=== PATIENT | male | born 1945 | race Caucasian/White ===

== ENCOUNTER → 2016-09-27 | Outpatient (CLI) | payer OTHER ==
--- NOTE | ~2016-09-27 | 2DMMODE ---
[facility] [address] [place] [address] 2 D/M-MODE ECHOCARDIOGRAM Name: MATTHEW WESTON Room #: REG CL [facility]#: [id number] Admission: 09/27/16 Attend Phys: Charanjit Cain Discharge: Date of : 43 Date of Service: 09/27/16 1459 Report #: [id number] THIS REPORT FOR: //name// APPROVED REPORT Study performed: 09/27/2016 14:09:36 EXAM: Comprehensive 2D, Doppler, and color-flow Echocardiogram Patient Location: Out-Patient Status: routine BSA: 2.07 HR: 56 bpm BP: 137/73 mmHg Rhythm: NSR Other Information Study Quality: Adequate Indications Bradycardia 2D Dimensions RVDd: 38.33 mm LVEF(%): 62.42 (>50%) IVSd: 11.04 (7-11mm) LVOT Diam: 21.59 (18-24mm) LVDd: 40.57 mm PWd: 10.16 (7-11mm) Ascending Ao: 30.74 (22-36mm) LVDs: 27.08 (25-40mm) Aortic Root: 32.59 mm Garcia's LVEF: 62.42 % Volumes Left Atrial Volume (Systole) Single Plane 4CH: 47.14 mL Single Plane 2CH: 55.21 mL LA ESV Index: 28.00 mL/m2 Aortic Valve AoV Peak Roland.: 2.63 m/s AO Peak Gr.: 27.76 mmHg LVOT Max P.21 mmHg AO Mean Gr.: 13.77 mmHg AO V2 Mean: 1.76 m/s LVOT Max V: 1.34 m/s AO V2 VTI: 54.31 cm MARCO Vmax: 1.87 cm2 Mitral Valve [facility] [place] [address] 2 D/M-MODE ECHOCARDIOGRAM Name: MATTHEW WESTON [id number] Admission: 09/27/16 Attend Phys: Charanjit Cain Discharge: Date of : 43 Date of Service: 09/27/16 1459 Report #: [id number] E/A Ratio: 0.9 MV Decel. Time: 231.03 ms MV E Max Roland.: 0.77 m/s MV A Roland.: 0.86 m/s MV PHT: 67.00 ms IVRT: 92.27 ms Pulmonary Valve PV Peak Roland.: 1.71 m/s PV Peak Gr.: 11.71 mmHg Pulmonary Vein P Vein S: 0.44 m/s P Vein A: 0.28 m/s P Vein D: 0.30 m/s P Vein A Dur.: 96.9 msec P Vein S/D Ratio: 1.47 Tricuspid Valve TR Peak Roland.: 2.35 m/s RAP Estimate: 5.00 mmHg TR Peak Gr.: 22.13 mmHg PA Pressure: 27.00 mmHg Left Ventricle The left ventricle is normal size. There is normal LV segmental wall motion. There is normal left ventricular wall thickness. Left ventricular systolic function is normal. LVEF is 55-60%. Mild diastolic dysfunction is present (impaired relaxation pattern). Right Ventricle The right ventricle is normal size. The right ventricular systolic function is normal. Atria The left atrium size is normal. The right atrium size is normal. Aortic Valve Aortic valve is calcified. No aortic regurgitation is present. There is very mild valvular aortic stenosis. Calculated aortic valve area is 1.9 cm2 with maximum pressure gradient of 28 mmHg and mean pressure gradient of 14 mmHg. Mitral Valve The mitral valve is normal in structure. Trace mitral regurgitation. Tricuspid Valve [facility] [address] [place] [address] 2 D/M-MODE ECHOCARDIOGRAM Name: MATTHEW WESTON Room #: REG CL [facility]#: [id number] Admission: 09/27/16 Attend Phys: Charanjit Cain Discharge: Date of : 43 Date of Service: 09/27/16 1459 Report #: [id number] The tricuspid valve is normal in structure. There is trace tricuspid regurgitation. The right atrial pressure is estimated at 5 mmHg. Estimated PAP of 27mmHg. Pulmonic Valve The pulmonary valve is normal in structure. Trace pulmonic regurgitation. Great Vessels The aortic root is normal in size. The ascending aorta is normal in size. IVC is normal in size and collapses >50% with inspiration. Pericardium There is no pericardial effusion. <Conclusion> The left ventricle is normal size. LVEF is 55-60%. Aortic valve is calcified. No aortic regurgitation is present. There is very mild valvular aortic stenosis. Calculated aortic valve area is 1.9 cm2 with maximum pressure gradient of 28 mmHg and mean pressure gradient of 14 mmHg. The mitral valve is normal in structure. Trace mitral regurgitation. The tricuspid valve is normal in structure. There is trace tricuspid regurgitation. The right atrial pressure is estimated at 5 mmHg. Estimated PAP of 27mmHg. The pulmonary valve is normal in structure. Trace pulmonic regurgitation. <ELECTRONICALLY SIGNED> By: Axel Street MD 09/27/16 [address] MD /INF
== END ==
LOC: CV 13:17
DX: I35.0 Nonrheumatic aortic (valve) stenosis (principal); R00.1 Bradycardia, unspecified

== ENCOUNTER 2016-10-27 06:31 | Observation (INO) | payer OTHER ==
[~2016-10-27] VITALS: Ht 177.8 cm; Wt 90.7 kg
--- NOTE | ~2016-10-27 | D ---
[facility] [place] [address] DISCHARGE SUMMARY Name: MATTHEW WESTON Room #: 205-P [facility] Lida Rosado#: [id number] Admission: 10/27/16 Attend Phys: Charanjit Cain MD Discharge: 10/28/16 Date of : 43 Report #: [id number] THIS REPORT FOR: //name// CC: Charanjit Persony Sidra FINAL DIAGNOSES: 1. Tachycardia-bradycardia syndrome, symptomatic, status post permanent pacemaker insertion. 2. Paroxysmal atrial fibrillation. 3. Sinus bradycardia. 4. Hypertension. 5. Hypercholesterolemia. HOSPITAL COURSE: Please see the original H and P for full details. The patient was found to have symptomatic paroxysmal atrial fibrillation as well as symptomatic bradycardia. The patient was diagnosed with tachycardia-bradycardia syndrome. He presented electively for a pacemaker insertion. This was performed by Dr. Cain. The patient remains hemodynamically stable and will be discharged home today. FINAL DISPOSITION: Amlodipine 5 mg daily, Lipitor 40 mg daily, Synthroid, losartan 50 mg daily, omeprazole 20 mg daily, Zetia 10 mg daily, Toprol-XL 25 mg daily, and Lexapro. <ELECTRONICALLY SIGNED> By: Masoud Kaur MD 10/29/16 0836 [id number] [id number] Masoud Kaur MD /nt
--- NOTE | ~2016-10-27 | P ---
[facility] [place] [address] PROCEDURE REPORT Name: TRISTAMATTHEW ORTIZ [facility] [id number] Admission: 10/27/16 Attend Phys: Charanjit Cain MD Discharge: Date of : 43 Report #: [id number] THIS REPORT FOR: //name// CC: Charanjit Valente DATE OF SERVICE: 10/27/2016 PREOPERATIVE DIAGNOSIS: Sick sinus syndrome. POSTOPERATIVE DIAGNOSIS: Sick sinus syndrome. HISTORY OF PRESENT ILLNESS: The patient is a 71-year-old with history of paroxysmal atrial fibrillation as well as symptomatic bradycardia and tachycardia-bradycardia syndrome who is here for dual chamber pacemaker implantation. ANESTHESIA: The patient underwent MAC anesthesia with no anesthesia related complications. PROCEDURE: The patient underwent informed consent. We discussed the details of the procedure including the risks, which include, but not limited to bleeding, infection, vascular damage, cardiac perforation, and pneumothorax. He understood these risks and was willing to proceed. As such, he was brought to the EP laboratory in a fasting and sedated state and prepped and draped in a sterile fashion. The patient received IV antibiotics prior to the initiation of the procedure and underwent a venogram showing patency of the left axillary vein. Next, I injected 20 mL of lidocaine below the level of left clavicle. Incision was made. A pocket was created over the prepectoral fascia and access was obtained twice to the left axillary vein using the extrathoracic approach. Sheaths were positioned using the modified Seldinger technique. Next, under fluoroscopy, leads were positioned in the right ventricular apex and right atrial appendage, both with adequate pacing and sensing thresholds and the leads were sutured to the prepectoral fascia using Ethibond suture. The device was connected and placed in the pocket. The pocket was irrigated with vancomycin and then the pocket was closed in 3 layers and surgical glue was placed to the outer skin layer. The patient awoke neurologically and hemodynamically intact with no complications and no significant bleeding. The implanted pacemaker is a [employer] model #QD4900, serial #[id number] with an atrial lead was a [employer] model #2088TC, 52-cm, serial #[id number] with a P-wave of 2.1 millivolts, pacing impedance of 440 ohms and pacing threshold 0.75 volts at 0.4 milliseconds. The RV lead was a [employer] model #2088TC, 58-cm, serial #[id number] with an R-wave greater than 12 millivolts, pacing impedance of 640 ohms and pacing threshold 0.5 volts at 0.4 milliseconds. The device was programmed to the DDDR 60-130 mode[address] [address] PROCEDURE REPORT Name: MATTHEW WESTON DIANA Room #: REG CL [facility]#: [id number] Admission: 10/27/16 Attend Phys: Charanjit Cain MD Discharge: Date of : 43 Report #: [id number] CONCLUSIONS: 1. Successful dual chamber pacemaker implantation. 2. Satisfactory atrial and ventricular pacing and sensing thresholds. By: 0934 1022 Charanjit Cain MD /nt
[2016-10-27] MEDS ORDERED: ATORVASTATIN CA40 MG PO (06:49)
[2016-10-27] MEDS ORDERED: NORVASC5 MG PO (06:49)
[2016-10-27] MEDS ORDERED: SYNTHROID100 MCG PO (06:50)
[2016-10-27] MEDS ORDERED: PRADAXA150 MG PO (06:50)
[2016-10-27] MEDS ORDERED: COZAAR 50 MG TA50 M2 PO (06:51)
[2016-10-27] MEDS ORDERED: ZETIA10 MG PO (06:51)
[2016-10-27] MEDS ORDERED: TOPROL XL25 MG PO (06:51)
[2016-10-27] MEDS ORDERED: OMEPRAZOLE 20 M20 MG PO (06:51)
[2016-10-27] MEDS ORDERED: LEXAPRO 10 MG T10 M1 PO (06:52)
[2016-10-27 07:06] VITALS: BP 140/68
[2016-10-27 07:13] LABS: ABSOLUTE NEUTROPHILS 2.3 thou/uL (1.4-8.2); BASOPHILS 1.1 % (0.0-2.0); EOSINOPHILS 13.1 % (0.0-3.0); HEMATOCRIT 41.5 % (42.0-52.0); HEMOGLOBIN 14.2 gm/dL (14.0-18.0); MCH 30.6 pg (26.0-34.0); MCHC 34.3 g/dL (28.0-37.0); MCV 89.1 fL (80.0-100.0); MONOCYTES 8.4 % (1.0-8.0); PLATELET COUNT 178 thou/uL (150-400); POLYS 44.4 % (36.0-66.0); RBC 4.65 mil/uL (4.50-6.00); RDW 14.3 % (10.5-14.5); WBC 5.3 thou/uL (4.0-11.0)
[2016-10-27 07:16] LABS: MANUAL DIFF NO
[2016-10-27 07:21] LABS: CALCIUM 9.4 mg/dL (8.5-10.1); CREATININE 1.1 mg/dL (0.7-1.3); POTASSIUM 3.7 mmol/L (3.5-5.1)
[2016-10-27 07:27] LABS: TOTAL BILIRUBIN 0.8 mg/dL (<0.1-1.0); TOTAL PROTEIN 7.2 g/dL (6.4-8.2)
[2016-10-27 07:28] LABS: APTT 28.9 Seconds (24.5-32.8); PROTIME 10.2 Seconds (9.3-11.4)
[2016-10-27 11:16] VITALS: BP 136/90
[2016-10-27 15:23] VITALS: BP 141/80
[2016-10-27 19:13] VITALS: BP 134/71
[2016-10-27 19:18] VITALS: BP 125/74
[2016-10-28 04:14] VITALS: BP 136/87
[2016-10-28 07:15] VITALS: BP 131/77
[2016-10-28 11:00] VITALS: BP 130/71
[2016-10-28 11:30] VITALS: BP 131/77
== END 2016-10-28 12:05 | disposition home or self-care (01) ==
LOC: CATH 06:31 → 2N 11:15 → CATH 11:52 → 2N 10-28 12:05
PROVIDERS: Internal Medicine Cardiovascular Disease
DX: I49.5 Sick sinus syndrome (principal); I48.0 Paroxysmal atrial fibrillation; R00.1 Bradycardia, unspecified; I10 Essential (primary) hypertension; E78.00 Pure hypercholesterolemia, unspecified
CPT/HCPCS: 62110; 62900; 70005

== ENCOUNTER → 2016-11-14 | Outpatient (CLI) | payer OTHER ==
[~2016-11-14] MED LIST: ATORVASTATIN CA40 MG PO; COZAAR 50 MG TA50 M2 PO; LEXAPRO 10 MG T10 M1 PO; NORVASC5 MG PO; OMEPRAZOLE 20 M20 MG PO; PRADAXA150 MG PO; SYNTHROID100 MCG PO; TOPROL XL25 MG PO; ZETIA10 MG PO
== END ==
LOC: NUC 08:07
DX: I48.91 Unspecified atrial fibrillation (principal)

== ENCOUNTER → 2017-08-23 | Outpatient (CLI) | payer OTHER ==
[~2017-08-23] VITALS: Ht 177.8 cm; Wt 118.4 kg
[~2017-08-23] MED LIST changes: +LEXAPRO 10 MG T10 M2 PO; +LEXAPRO20 MG PO; +OMEPRAZOLE 20 M20 M1 PO; -OMEPRAZOLE 20 M20 MG PO; +SYNTHROID100 MC1 PO; -SYNTHROID100 MCG PO; +TAMBOCOR 100 M100 M1 PO; +TRAZODONE HCL50 MG PO
--- NOTE | ~2017-08-23 | PATH ---
[facility] [address] [place] [address] PATHOLOGY RPT PROCEDURE Name: TRISTAMATTHEW ORTIZ Room #: REG [facility]#: [id number] Admission: 08/23/17 Date of : 43 Discharge: Report #: [id number] Path Case #: [id number] [facility] Accession Number: [id number] . 01 Material submitted: . GASTRITIS BIOPSY . 01 Clinical history: . Dysphagia, gastritis, hiatal hernia, Padmini's ring. . 02 Diagnosis: Gastric biopsy, "gastritis rule out H. pylori": - Mild chronic reactive gastropathy. - The immunoperoxidase stains for Helicobacter pylori is negative. (SHA:mgjayden; 08/24/17) QRQ/08/24/2017 . 02 Electronically signed: . Shar Jiménez MD, Pathologist NPI- [id number] . 01 Gross description: . Received in formalin labeled "CaitlynswathiMatthew, gastritis rule out H. pylori" is a 1.2 x 0.5 x 0.2 cm aggregate of corcoran-brown soft tissue fragments. The specimen is submitted in cassette A1. ([facility]; 08/23/2017) SYC/SYC . 02 Pathologist provided ICD-10: K31.9 . 02 CPT . 810957, A31460 Performed at: [address], [place] [id number] MD Shamar Robin MD Phone: [phone] Performed at: [address] [id number] MD Narcisa Garcia MD Phone: [phone]
--- NOTE | ~2017-08-23 | P ---
[facility] [place] [address] PROCEDURE REPORT Name: MATTHEW WESTON Room #: REG [facility]#: [id number] Admission: 08/23/17 Attend Phys: Chaim Castro MD Discharge: Date of : 43 Report #: [id number] THIS REPORT FOR: //name// CC: Chaim Isabel MD OUTPATIENT UPPER ENDOSCOPY REPORT BRIEF HISTORY: The patient is a 71-year-old male with progressive solid food dysphagia over the past year. It has not been associated with weight loss. PREOPERATIVE DIAGNOSIS: Solid food dysphagia. POSTOPERATIVE DIAGNOSES: 1. Intermittently seen Schatzki ring. 2. Small hiatus hernia. 3. Diffuse erythematous gastritis. MEDICATIONS: Deep sedation with propofol per Anesthesia. SPECIMEN: Biopsies of gastritis. ESTIMATED BLOOD LOSS: 3 mL. PROCEDURE: EGD with biopsy. FINDINGS: Prior to propofol sedation, procedure of upper endoscopy was discussed with the patient as well as potential risks and its complications. He indicates he understands and desires to proceed. DESCRIPTION OF PROCEDURE: With the patient in left lateral decubitus position, the Olympus video endoscope was inserted in the cervical esophagus under direct vision without difficulty. Examination of this organ through its entire length revealed normal esophageal mucosa down the squamocolumnar junction. I did not see evidence of esophagitis, although he reports that he does have some heartburn problems controlled with omeprazole. Intermittently, a mild Schatzki ring was seen. Intermittently, a small hiatus hernia, less than 2 cm was seen. The scope was advanced into the stomach, was examined on end view as well as retroflexed views. There was a pattern of diffuse erythematous gastritis and ulcers or erosions were not seen. Upon retroflexion, no mass lesions were seen. The pylorus, duodenal bulb, and postbulbar duodenal sweep were inspected and noted to be unremarkable. At that point, the scope was slowly withdrawn and careful circumferential views confirmed the above findings. The patient tolerated the procedure well. [address] [address] PROCEDURE REPORT Name: MATTHEW WESTON Room #: REG [facility]..#: [id number] Admission: 08/23/17 Attend Phys: Chaim Castro MD Discharge: Date of : 43 Report #: [id number] Subsequently, he was dilated with passage of 50-Mong[place] Anna dilator. There was no resistance. CONDITION OF THE PATIENT UPON DISCHARGE: Following the procedure, the patient was drowsy, arousable, conversant, will be discharged home when fully ambulatory. INSTRUCTIONS TO THE PATIENT AND FAMILY AT THE TIME OF DISCHARGE: The patient with Schatzki ring dilated as noted above. Also, biopsies obtained of the gastritis. We will follow up on biopsies and make further recommendations. As far as his dysphagia, he should return for dilation on an as needed basis. He does have a history of reflux disease and takes omeprazole 20 mg daily. He reports if he stops his medicine, he will have symptoms within about 3 days. He may be able to tolerate a lower dose and therefore an every other dose schedule may be reasonable for this patient. He will return to Dr. Charanjit Cain and Dr. Holguin and return to see me as needed. By: 1013 1307 Chaim Castro MD /nt
== END | disposition home or self-care (01) ==
LOC: GI 08:30
DX: K31.9 Disease of stomach and duodenum, unspecified (principal); K22.2 Esophageal obstruction; K44.9 Diaphragmatic hernia without obstruction or gangrene; I10 Essential (primary) hypertension; I48.91 Unspecified atrial fibrillation; E78.00 Pure hypercholesterolemia, unspecified; E03.9 Hypothyroidism, unspecified; M19.90 Unspecified osteoarthritis, unspecified site; K21.9 Gastro-esophageal reflux disease without esophagitis; G31.09 Other frontotemporal neurocognitive disorder; F02.80 Dementia in other diseases classified elsewhere, unspecified severity, without behavioral disturbance, psychotic disturbance, mood disturbance, and anxiety; Z87.891 Personal history of nicotine dependence; Z95.0 Presence of cardiac pacemaker; Z79.01 Long term (current) use of anticoagulants; Z79.899 Other long term (current) drug therapy; Z98.890 Other specified postprocedural states
CPT/HCPCS: 62110; 62900

== ENCOUNTER → 2019-03-18 | Outpatient (CLI) | payer OTHER, MEDICARE | LOC: SJCVC 09:05 | DX: Z45.018 Encounter for adjustment and management of other part of cardiac pacemaker (principal); R94.31 Abnormal electrocardiogram [ECG] [EKG]; I48.0 Paroxysmal atrial fibrillation; I49.5 Sick sinus syndrome; I35.0 Nonrheumatic aortic (valve) stenosis; R42 Dizziness and giddiness; I10 Essential (primary) hypertension; E78.5 Hyperlipidemia, unspecified; I25.10 Atherosclerotic heart disease of native coronary artery without angina pectoris; E11.9 Type 2 diabetes mellitus without complications; K21.9 Gastro-esophageal reflux disease without esophagitis; Z87.891 Personal history of nicotine dependence; Z79.899 Other long term (current) drug therapy ==

== ENCOUNTER → 2019-04-09 | Outpatient (CLI) | payer OTHER, MEDICARE | LOC: SJCVCIMAG 09:50 | DX: I65.23 Occlusion and stenosis of bilateral carotid arteries (principal); I51.7 Cardiomegaly; Z95.0 Presence of cardiac pacemaker ==

== ENCOUNTER → 2019-10-08 | Outpatient (CLI) | payer OTHER, MEDICARE | LOC: SJCVC 13:10 | PROVIDERS: ATTEND Internal Medicine Infectious Disease | DX: Z45.018 Encounter for adjustment and management of other part of cardiac pacemaker (principal); R94.31 Abnormal electrocardiogram [ECG] [EKG]; I48.0 Paroxysmal atrial fibrillation; I49.5 Sick sinus syndrome; I10 Essential (primary) hypertension; E11.9 Type 2 diabetes mellitus without complications; Z79.899 Other long term (current) drug therapy; Z87.891 Personal history of nicotine dependence ==

== ENCOUNTER → 2020-10-07 | Outpatient (CLI) | payer OTHER | LOC: SJCVC 12:34 | PROVIDERS: ATTEND Internal Medicine Cardiovascular Disease | DX: I48.0 Paroxysmal atrial fibrillation (principal); R06.00 Dyspnea, unspecified; I10 Essential (primary) hypertension; E78.5 Hyperlipidemia, unspecified; E11.9 Type 2 diabetes mellitus without complications; K21.9 Gastro-esophageal reflux disease without esophagitis; Z95.0 Presence of cardiac pacemaker; Z79.84 Long term (current) use of oral hypoglycemic drugs; Z79.899 Other long term (current) drug therapy; Z87.891 Personal history of nicotine dependence ==

== ENCOUNTER → 2020-10-14 | Outpatient (CLI) | payer OTHER | LOC: SJCVCIMAG 11:34 | PROVIDERS: ATTEND Internal Medicine Cardiovascular Disease | DX: I51.89 Other ill-defined heart diseases (principal); I48.0 Paroxysmal atrial fibrillation; Z95.0 Presence of cardiac pacemaker ==